=== PATIENT | male | born 2000 | race Caucasian/White ===

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

== ENCOUNTER 2023-01-07 12:06 | Emergency (ER) | payer OTHER ==
[~2023-01-07] VITALS: Ht 172.7 cm; Wt 67.1 kg
== END 2023-01-07 13:29 | disposition home or self-care (01) ==
LOC: ED 12:06
DX: K59.00 Constipation, unspecified (principal); F90.9 Attention-deficit hyperactivity disorder, unspecified type